=== PATIENT | female | born 1960 | race Caucasian/White ===

== ENCOUNTER 2018-06-11 07:06 | Day surgery (SDC) | payer MEDICARE, OTHER ==
[2018-06-11] MEDS ORDERED: FENTAnyl 50 MCG/ML VIAL IV ×3 (08:00)
[2018-06-11] MEDS ORDERED: SOD CHLORIDE 0.9% 1,000 ML IV (08:00)
[2018-06-11] MEDS ORDERED: MIDAZOLAM 1 MG/ML 2 ML INJ IV (08:00)
[2018-06-11] MEDS ORDERED: ONDANSETRON 4 MG INJ IV (08:00)
[2018-06-11] MEDS ORDERED: MIDAZOLAM 1 MG/ML 2 ML INJ (08:48)
[2018-06-11] MEDS ORDERED: FENTAnyl 50 MCG/ML VIAL (08:48)
[2018-06-11] MEDS ORDERED: PROPOFOL 20 ML (08:48)
[2018-06-11] MEDS ORDERED: LIDOCAINE 1% (MDV) 20 ML INJ (09:07)
== END 2018-06-11 12:53 | disposition home or self-care (01) ==
LOC: SDS 07:06
DX: M89.9 Disorder of bone, unspecified (principal); E78.5 Hyperlipidemia, unspecified; G40.909 Epilepsy, unspecified, not intractable, without status epilepticus; R55 Syncope and collapse
CPT/HCPCS: 38222; 77012; 87070; 87075; 87102; 87116; 88305; 88311; 88313; 93005